=== PATIENT | male | born 1990 | race Caucasian/White ===

== ENCOUNTER 2020-12-10 21:23 | Emergency (ER) | payer OTHER, SELFPAY ==
[2020-12-11] MEDS ORDERED: diphenhydrAMINE 25 MG CAP ONE (01:29)
== END 2020-12-11 01:40 | disposition home or self-care (01) ==
LOC: NAV ERS 21:23
DX: S91.351A Open bite, right foot, initial encounter (principal); I10 Essential (primary) hypertension; F17.210 Nicotine dependence, cigarettes, uncomplicated; W59.11XA Bitten by nonvenomous snake, initial encounter
CPT/HCPCS: 99284